=== PATIENT | male | born 1985 | race Caucasian/White ===

== ENCOUNTER 2017-11-27 12:54 | Emergency (ER) | payer BC ==
[2017-11-27 13:49] VITALS: BP 141/83; TEMP 97.8; O2SAT 96
--- NOTE | 2017-11-27 13:49 | ED.PDOC ---
History of Present Illness - General Chief Complaint: Upper Extremity Injury Time Seen by Provider: 11/27/17 12:56 Source: patient Exam Limitations: no limitations - History of Present Illness Initial Comments: he patient is a 32-year-old male presenting to the emergency room secondary to trauma to his right elbow. 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 This occurred approximately 2 hours prior to arrival. He is neurovascularly intact distally. There is no deformity. Passive and active range of motion as well as strength are preserved. He does have diffuse discomfort to palpation around the entirety of the elbow. There is no crepitus. There is no laceration. Timing/Duration: 1-3 hours Severity: moderate Improving Factors: immobilization Worsening Factors: movement Associated Symptoms: denies symptoms Allergies/Adverse Reactions: Allergies NO KNOWN ALLERGY Allergy (Verified 11/27/17 13:01) Home Medications: Ambulatory Orders Qcdpnficgwtfc-Dlwh-Zknjqezpbg [Fioricet] 1 ea PO Q8H PRN #21 tab 11/27/17 Review of Systems - Review of Systems Constitutional: States: no symptoms reported EENTM: States: no symptoms reported Respiratory: States: no symptoms reported Cardiology: States: no symptoms reported Gastrointestinal/Abdominal: States: no symptoms reported Genitourinary: States: no symptoms reported Musculoskeletal: States: see HPI Skin: States: no symptoms reported Neurological: States: no symptoms reported All other Systems: No Change from Baseline Past Medical History (General) - Patient Medical History Hx Seizures: No Hx Stroke: No Hx Dementia: No Hx Asthma: No Hx of COPD: No Hx Cardiac Disorders: No Hx Congestive Heart Failure: No Hx Pacemaker: No Hx Hypertension: No Hx Thyroid Disease: No Hx Diabetes: No Hx Gastroesophageal Reflux: No Hx Renal Disease: No Hx Cancer: No Hx of HIV: No Hx Hepatitis C: No Hx MRSA: No - Vaccination History Hx Tetanus, Diphtheria Vaccination: No Hx Influenza Vaccination: No Hx Pneumococcal Vaccination: No Immunizations Up to Date: No - Social History Hx Tobacco Use: Yes Hx Chewing Tobacco Use: No Hx Alcohol Use: No Hx Substance Use: No Hx Substance Use Treatment: No Hx Depression: No Feels Threatened In Home Enviroment: No Feels Threatened In a Relationship: No Hx Physical Abuse: No Hx Emotional Abuse: No Hx Suspected Abuse: No - Female History Patient is a Female of Child Bearing Age (10 -59 yrs old): No Patient : No Family Medical History - Family History Mother Family History: Unknown Physical Exam - Physical Exam General Appearance: Alert, Comfortable, No apparent distress Eye Exam: bilateral normal Ears, Nose, Throat: hearing grossly normal Neck: full range of motion, supple Respiratory: no respiratory distress, no accessory muscle use Cardiovascular/Chest: normal peripheral pulses, no edema Peripheral Pulses: radial,right: 2+, radial,left: 2+ Rectal Exam: deferred Back Exam: normal inspection Extremity: normal range of motion, no pedal edema, normal capillary refill, other - see history of present illness Neurologic: clinical medical assistant II-XII nml as tested, alert, normal mood/affect, oriented x 3 Skin Exam: normal color Comments: Vital Signs - 24 hr 11/27/17 11/27/17 12:54 13:47 Temperature 98.6 F 97.8 F Pulse Rate [ 98 H 91 H Apical] Respiratory 18 18 Rate Blood Pressure 125/92 141/83 [Left Arm] O2 Sat by Pulse 98 96 Oximetry Progress - Progress Progress: 11/27/17 13:49 the patient is a 32-year-old male presented secondary to mild crush injury to the right elbow. He is neurovascularly intact. X-ray of the elbow shows no evidence of fracture or dislocation. Final read on the x-ray is pending due to computer complications. Vgyc-ezx-yqxmfns anti-inflammatories such as Motrin or Aleve can be used to help reduce discomfort. He should treat this essentially as a sprain. No heavy duty with the arm for at least the next week. He should do range of motion exercises. He'll also be written for some Fioricet for as needed use. ER warnings were given. If he is continuing to have focal pain or increasing pain over the next couple weeks then he can have his primary care doctor repeat the x-ray to make sure there is no hairline fracture that was missed. - EKG/XRAY/CT CT Ordered: No CT Interpretation Call Back: No Departure - Departure Clinical Impression: Elbow contusion Qualifiers: Encounter type: initial encounter Laterality: right Qualified Code(s): S50.01XA - Contusion of right elbow, initial encounter Disposition: Discharge to Home or Self Care Condition: Fair Departure Forms: ED Discharge - Pt. Copy, Patient Portal Self Enrollment Diet: regular diet Activity: increase activity as tolerated Prescriptions: Nccuvwrxtmivg-Sqfr-Hqysvyeipg [Fioricet] 1 ea PO Q8H PRN #21 tab PRN Reason: Pain Home Medications: Ambulatory Orders Zmkyexyynntjf-Ejwi-Djkgsvewan [Fioricet] 1 ea PO Q8H PRN #21 tab 11/27/17 Additional Instructions: the patient is a 32-year-old male presented secondary to mild crush injury to the right elbow. He is neurovascularly intact. X-ray of the elbow shows no evidence of fracture or dislocation. Final read on the x-ray is pending due to computer complications. Vuvl-mwt-zxeeykn anti-inflammatories such as Motrin or Aleve can be used to help reduce discomfort. He should treat this essentially as a sprain. No heavy duty with the arm for at least the next week. He should do range of motion exercises. He'll also be written for some Fioricet for as needed use. ER warnings were given. If he is continuing to have focal pain or increasing pain over the next couple weeks then he can have his primary care doctor repeat the x-ray to make sure there is no hairline fracture that was missed.
--- NOTE | 2017-11-27 15:38 | RAD ---
EXAM DESCRIPTION: Elbow,Right 3 Views CLINICAL HISTORY: 32 years Male, smashed right elbow in gate COMPARISON: None. FINDINGS: Three views of the right elbow show no acute fracture or malalignment. No joint effusion. No radiopaque foreign body or soft tissue gas. IMPRESSION: Negative exam. Electronically signed by: Javier Richardson MD 11/27/2017 3:37 PM CDT
== END 2017-11-27 13:58 | disposition home or self-care (01) ==
LOC: ER 12:54
DX: S50.01XA Contusion of right elbow, initial encounter (principal); W22.8XXA Striking against or struck by other objects, initial encounter; Y99.0 Civilian activity done for income or pay; Y92.69 Other specified industrial and construction area as the place of occurrence of the external cause; Z87.891 Personal history of nicotine dependence